=== PATIENT | female | born 1940 | race Two or more races ===

== ENCOUNTER 2020-03-03 13:00 | Emergency (ER) | payer OTHER ==
[~2020-03-03] VITALS: Ht 157.5 cm; Wt 54.0 kg
[~2020-03-03 13:00] MED LIST: TENORMIN50 M1
== END 2020-03-03 22:27 | disposition home or self-care (01) ==
LOC: ER 13:00
DX: K52.89 Other specified noninfective gastroenteritis and colitis (principal); R14.0 Abdominal distension (gaseous); K92.1 Melena; Z03.818 Encounter for observation for suspected exposure to other biological agents ruled out

== ENCOUNTER → 2020-10-20 | Emergency (ER) | payer OTHER ==
[~2020-10-20] VITALS: Ht 160 cm; Wt 55.8 kg
[~2020-10-20] MED LIST changes: +BACTRIM DS TAB1 EACH PO; +PYRIDIUM200 MG PO
== END | disposition home or self-care (01) ==
LOC: ER 17:37
DX: N39.0 Urinary tract infection, site not specified (principal); R51.9 Headache, unspecified; R42 Dizziness and giddiness